=== PATIENT | female | born 1975 ===

== ENCOUNTER → 2022-06-13 13:33 | Outpatient (CLI) | payer OTHER, SELFPAY ==
--- NOTE | ~2022-06-13 | US_ITS ---
EXAMINATION: US pelvic complete DATE: 06/13/2022 14:42 INDICATION: Dysfunctional uterine bleeding TECHNIQUE: Multiple transabdominal sonographic images of the pelvis were obtained. COMPARISON: None. FINDINGS: The uterus measures 10.7 x 4.5 x 5.9 cm. The endometrial complex measures 8 mm. The right o vary measures 2.3 x 1.9 x 2 cm. The left ovary measures 2.3 x 1.7 x 2.5 cm. There is normal vascular flow in the ovaries. There is no free fluid in the pelvis. IMPRESSION: 1. No sonographic correlate for the patient's symptoms. Reviewed, dictated and finalized at location B.
== END ==
PROVIDERS: PCP Physician Assistant; Visit Provider Physician Assistant
DX: N93.8 Other specified abnormal uterine and vaginal bleeding (principal)
CPT/HCPCS: 76856